=== PATIENT | male | born 1995 | race African-American/Black ===

== ENCOUNTER 2017-05-13 09:33 | Day surgery (SDC) | payer OTHER ==
[~2017-05-13 09:33] MED LIST: Buffered Lidocaine 0.9% SYRIN* 5 ML/SYR SYRINGE INTRADERM ONE; Dexamethasone IV* 4 MG/ML 1 ML (4 MG) IV SLOW PU ONE; Famotidine IV* 10 MG/ML 2 ML (20 mg) IV ONE; KETAMINE HCL* 50 MG/ML 10 ML VIAL ONE; Midazolam* 1 MG/ML 5 ML VIAL (5 MG) ONE; Morphine INJ* 2 MG/ML 1 ML SYRINGE IV PRN; PROCHLORPERAZINE INJ 5 MG/ML 2 ML VIAL IV PRN; fentaNYL* 50 MCG/ML 2 ML VIAL (100 MCG VIAL) IV PRN; fentaNYL* 50 MCG/ML 2 ML VIAL (100 MCG VIAL) ONE; oxyCODONE/Acetamin 5/325 MG* TAB PO PRN
[2017-05-13] MEDS ORDERED: Famotidine IV* 10 MG/ML 2 ML (20 mg) ONE (10:00)
[2017-05-13] MEDS ORDERED: ceFAZolin 2 GM PREMIX (*) 50 ML IVPB ONE (10:01)
[2017-05-13] MEDS ORDERED: Buffered Lidocaine 0.9% SYRIN* 5 ML/SYR SYRINGE ONE (10:01)
[2017-05-13] MEDS ORDERED: EPINEPHrine AMP 1 MG/ML ONE (11:13)
[2017-05-13] MEDS ORDERED: Bupivacaine 0.5% SDV PF* 30 ML VIAL ONE (11:17)
[2017-05-13] MEDS ORDERED: Glycopyrrolate IV* 0.2 MG/ML 1 ML VIAL ONE (11:39)
[2017-05-13] MEDS ORDERED: Lidocaine 2% PF * 5 ML VIAL ONE (11:39)
[2017-05-13] MEDS ORDERED: Propofol* 10 MG/ML 20 ML BTL IV PUSH ONE (11:39)
[2017-05-13] MEDS ORDERED: Dexamethasone IV* 4 MG/ML 1 ML (4 MG) ONE (11:39)
[2017-05-13] MEDS ORDERED: Ondansetron INJ* 2 MG/ML VIAL ONE (11:39)
[2017-05-13] MEDS ORDERED: fentaNYL* 50 MCG/ML 2 ML VIAL (100 MCG VIAL) ONE (11:39)
[2017-05-13] MEDS ORDERED: Ketorolac INJ* 30 MG/ML 1 ML VIAL ONE (11:39)
[2017-05-13] MEDS ORDERED: oxyCODONE/Acetamin 5/325 MG* TAB ONE (14:11)
[2017-05-13 15:12] VITALS: BP 127/72
--- NOTE | 2017-05-16 03:50 | OP ---
DATE OF OPERATION: 05/13/17 [facility] DATE OF : 89 SURGEON: Michael Stevenson MD ADMINISTRATIVE DIRECTOR: FRANCK Agarwal. A physician casino assistant manager was required for the length of the procedure to assist with instrumentation and knee manipulation. ANESTHESIOLOGIST: Trevor Maradiaga MD ANESTHESIA: General anesthesia. PRE-OP DIAGNOSIS: Right knee lateral meniscus tear, displaced. POST-OP DIAGNOSIS: Right knee lateral meniscus tear, displaced. OPERATIVE PROCEDURE: 1. Right knee arthroscopic partial lateral meniscectomy. 2. Right knee arthroscopic anterior synovectomy. 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 This injury occurred when the patient was squatting in a gym. The patient presented to football practice with persistent effusion and pain. This limited his participation with the football team. He had worked on knee strengthening with the athletic trainers for the team. The patient presented to me with a [id number] knee joint effusion, pain with terminal extension and flexion, and positive lateral pain with Pramod's testing. An MRI obtained, 04/26/17, showed a lateral meniscus tear of the body and part of the posterior horn of the meniscus with clearly a flap displaced inferior to the remainder of the posterior horn of the lateral meniscus. While the radiologist at [facility] read this as a bucket handle tear, I did not see any evidence of that. I spoke to the patient and to his father by telephone about nonoperative and operative treatment of meniscus tears. Given the displaced nature of the patient's meniscus tear, I thought it less likely that his symptoms would entirely disappear in the near future. The patient was interested in surgery and return to play as soon as possible. I spoke with the patient about benefits, risks, and potential complications of surgery. Risks and potential complications were discussed as bleeding, infection, nerve or blood vessel injury, meniscus retear, knee arthritis, knee pain and stiffness, blood clot. I booked the patient for evaluation and treatment of the lateral meniscus of the right knee. I told the patient and his parents, both preoperatively as well as the day of the surgery in preoperative holding, that it was much more likely that I would be performing a partial lateral meniscectomy given the size of the tear and it is appearing to include the central portion of the meniscus. I had measured preoperatively on the MRI scan a peripheral rim of lateral meniscus of at least 5 mm, which is generally an indication that the meniscus tear will not be in the red-red zone or even in the repairable component, the red-white zone. Therefore, while I told them that there was a possibility that I would do a meniscal repair, which would involve entirely different rehabilitation course postoperatively, I told that the patient and his family it was more likely that I would do a partial lateral meniscectomy. ANTIBIOSIS: 2 g Ancef IV. IV FLUIDS: 1350 cc crystalloid. TOURNIQUET TIME: 50 minutes at 300 mmHg. COMPLICATIONS: None. SPECIMEN: None. IMPLANTS: None. ESTIMATED BLOOD LOSS: 0 cc. DESCRIPTION OF PROCEDURE: Preoperative written consent was signed. Operative extremity was marked in the preoperative holding. The patient was taken back to the operating room and placed supine on the operating room table. The patient was sedated and then intubated. The patient' s proximal right thigh was placed in a tourniquet that was not yet elevated. The distal right thigh was placed in a circumferential thigh monahan. The table was elevated and the foot of the table was dropped. The right lower extremity was prepped with a ChloraPrep stick from foot to thigh. The right lower extremity was then draped. A surgical time-out was performed. An Esmarch was applied and the tourniquet was elevated to 300 mmHg. An anterolateral knee arthroscopy portal was created. Diagnostic arthroscopy was commenced. The patellofemoral compartment had no unstable articular cartilage lesions or any articular cartilage damage. The patient actually had no synovitis whatsoever, entering into this compartment, which is a rare finding for the knee that I tend to arthroscope. I then proceeded to the medial compartment. No articular cartilage lesions and no meniscus tear. I then proceeded to the intercondylar notch. The patient had a robust ligamentum mucosum and underlying that had an intact ACL. I next proceeded to the lateral compartment. No articular cartilage lesions; however, there was clearly some tearing of the lateral meniscus. There were some irregularities to the body of the lateral meniscus. Then, the more lateral component to the posterior horn looked unusual as if something had been tucked underneath it. I established an anteromedial knee arthroscopy portal under direct visualization , I did this so that this portal might be used for good visualization and instrumentation in the lateral compartment. I entered a shaver through this portal and debrided the ligamentum mucosum as well as some mild anteroinferior synovitis development. I then debrided with an arthroscopic shaver some of the frayed body of lateral meniscus tissue. I then entered a probe. I used this to pull the flap tear, which had been tucked inferior to the posterior horn of the lateral meniscus into the joint. This was quite a large fragment of meniscal tissue. It was frond like, but, more likely was probably parrot-beak tear with the end of it stretching towards the body. It was probably originally a parrot-beak tear that had truncated at some point. I started to debride that displaced fragment of meniscus as it was clearly not repairable tissue or based on its quality of tissue and based on its location very central. I tried with a shaver through the medial compartment. I debrided that displaced flap of meniscal tissue back to a stable rim using biters and an arthroscopic shaver, working both from lateral and from medial. This took longer than expected as the suction on the arthroscopic shaver was not working at all, really lessening the effect of this instrument. I was able to avoid debriding any posterior horn tissue other than that displaced flap of tissue, able to maximize the amount of remaining meniscus tissue for this young athlete. While I freshened up the frayed surface of the body of the lateral meniscus, I was able to visualize it better. There was a clear horizontal degenerative tear , in the body of the lateral meniscus. It looked as though it might stretch to the capsule or close to it. I did not want to debride all this tissue away and I did not think this was causing the patient pain. The pain generator was a displaced fragment of meniscal tissue posteriorly. Therefore, I did not debride the horizontal tear. That tissue seemed stable, was not likely to tear and not likely to cause pain. Given the large gap in the body of the lateral meniscus, it could be possible that that displaced flap posteriorly actually came from the central component of the body of the meniscus, with superior most and inferior most fibers intact. That is not clear. I was able to visualize well that there was still an intact cuff of lateral meniscal tissue in front of the popliteal hiatus, which may be happy and I photographed that. I debrided a very small amount of anterior horn of lateral meniscus as there were some fraying and tearing there back to a stable rim. At the conclusion of my debridement, I probed the anterior horn of body and posterior horn of the lateral meniscus and was satisfied that the meniscal rim was stable. Final images were taken. Instruments and fluid were removed from the knee. The skin incisions were closed with figure-of-8 stitches using nylon 4-0 suture. Xeroform, 4x4's, ABDs, sterile Webril. Remington bandage from foot to thigh. Tourniquet was dropped. A cooling unit was placed on the knee. DISPOSITION: The patient was extubated and transferred to the PACU. In the PACU, I reviewed the photographs from the arthroscopy with the patient and his parents. The last two sheets were missing at that time, so there were 5 additional photographs that the patient did not yet view. The patient will have Percocet for pain control, aspirin 325 mg p.o. b.i.d. for 2 weeks for DVT prophylaxis, and will follow up with me 10 to 14 days postoperatively to have his stitches removed. He is weightbearing as tolerated, crutches as needed, I instructed him to do physical therapy for knee strengthening starting immediately, on postoperative day 1. I had instructed him to stay out of the athletic training rooms for 2 weeks postoperative as they tend to be dirty. [id number]/[facility] #: [id number] TREY
== END 2017-05-13 14:59 | disposition home or self-care (01) ==
LOC: OR 09:33
PROVIDERS: ATTEND Orthopaedic Surgery
DX: S83.281A Other tear of lateral meniscus, current injury, right knee, initial encounter (principal); X50.9XXA Other and unspecified overexertion or strenuous movements or postures, initial encounter; Y92.9 Unspecified place or not applicable
CPT/HCPCS: A9270-GY; J0171; J0690; J1100; J1885; J2250; J2405; J2704; J3010